=== PATIENT | male | born 1955 | race Caucasian/White ===

== ENCOUNTER 2016-10-02 10:37 | Inpatient (IN) | payer BC ==
[~2016-10-02 10:37] MED LIST: CIPRO500 M2 PO; FLOMAX0.4 M1 PO; VITAMIN C PO
--- NOTE | 2016-10-02 19:33 | NUR ---
VIRTUAL CARE NOTE: ASSESSMENT DEFERRED. PT. SLEEPING.
[2016-10-03 04:52] LABS: BASO % 0.1 % (0-2); HCT-HEMATOCRIT 37.2 % (36.0-53.5); HGB-HEMOGLOBIN 12.6 gm/dl (13.5-17.0); IMMATURE GRANULOCYTES ABSOLUTE 0.04 tho/cmm (0-0.03); IMMATURE GRANULOCYTES PERCENT 0.3 % (0-0.3); LYMPH % 6.4 % (20-45); MCH (MEAN CORPUSCULAR HGB) 29.3 pg (28.0-32.0); MCHC MEAN CORPUSCULAR HGB CONC 33.9 % (32.0-36.0); MCV (MEAN CELL VOLUME) 86.5 fl (82.0-96.0); MONO % 6.4 % (0-12); NEUTROPHIL ABSOLUTE COUNT 13.8 tho/cmm (1.6-8.0); NEUTROPHIL-AUTOMATED 13.8 tho/cmm (1.6-8.0); NEUTROPHILS % 86.8 % (40-80); PLATELET COUNT 228 tho/cmm (150-450); RED CELL DISTRIBUTION WIDTH 12.9 % (12.4-16.4); WHITE BLOOD COUNT 15.8 tho/cmm (4.0-10.0)
[2016-10-03 05:01] LABS: ANION GAP 9 mmol/L (0-20); BLOOD UREA NITROGEN 13 mg/dl (6-24); CALCIUM 7.8 mg/dl (8.5-10.5); CARBON DIOXIDE-VENOUS 27 mmol/L (22-32); CHLORIDE 107 mmol/l (96-110); CREATININE 0.85 mg/dl (0.60-1.30); GLUCOSE 149 mg/dL (70-110); POTASSIUM 4.3 mmol/L (3.7-5.1); SODIUM 139 mmol/L (135-145); eGFR VALUE FOR BLACK >90 mL/Min
--- NOTE | 2016-10-03 21:44 | NUR ---
VIRTUAL CARE NOTE: ASSESSMENT DEFERRED. PT. SLEEPING.
[2016-10-04] MEDS ORDERED: PERCOCET 5-3251 EACH PO (20:01)
[2016-10-04] MEDS ORDERED: COLACE100 M1 PO (20:02)
--- NOTE | 2016-10-04 20:33 | NUR ---
VN DISCHARGE TEACHING-TAUGHT PATIENT AND SIG OTHER ON DISMISSAL INSTRUCTIONS REGARDING HOME NAGY CARE,WOUND CARE, SMOKING CESSATION, MEDICATIONS, ETC. PATIENT VERBALIZED UNDERSTANDING OF ALL AND ABLE TO DO TEACHBACK ON NAGY CARES(HE HAS HAD ONE IN THE PAST AT HOME), FOLLOW UP APPT, WHEN TO CALL DOCTOR, MEDICATIONS AND DC INSTRUCTIONS. OPPORTUNITY FOR QUESTIONS. NOTIFIED NURSE HE HAS BEEN TAUGHT
[2016-10-05 09:33] LABS: BODY FLUID TYPE JP FLUID
== END 2016-10-04 21:15 | DRG 654 ==
LOC: SHSB 10:37 → ORW 12:47 → 5WD 17:50
PROVIDERS: Physician Assistant; ADMIT Urology
PROC: 0TBB4ZZ Excision of Bladder, Percutaneous Endoscopic Approach (ICD-10-PCS; principal; 2016-10-02)
PROC: 0WHR8YZ Insertion of Other Device into Genitourinary Tract, Via Natural or Artificial Opening Endoscopic (ICD-10-PCS; 2016-10-02)
PROC: 8E0W8CZ Robotic Assisted Procedure of Trunk Region, Via Natural or Artificial Opening Endoscopic (ICD-10-PCS; 2016-10-02)
DX: N32.3 Diverticulum of bladder (principal); N39.0 Urinary tract infection, site not specified; N40.1 Benign prostatic hyperplasia with lower urinary tract symptoms
CPT/HCPCS: C1769; J0690; J1170; J1956; J3480; J7030; Q9967